=== PATIENT | male | born 1990 | race Caucasian/White ===

== ENCOUNTER → 2017-10-03 | Outpatient (REF) | payer OTHER ==
[2017-10-03 10:44] LABS: PLATELET COUNT, AUTOMATED 330 K/uL (150-450)
== END ==
PROVIDERS: ATTEND Nurse Practitioner Family
DX: R11.10 Vomiting, unspecified (principal); R19.7 Diarrhea, unspecified
CPT/HCPCS: 82040; 82247; 82310; 82374; 82435; 82565; 82947; 84075; 84132; 84155; 84295; 84450; 84460; 84520; 85025

== ENCOUNTER → 2017-11-08 | Outpatient (CLI) | payer OTHER ==
--- NOTE | 2017-11-08 12:02 | RADIOLOGY IMAGING REPORT ---
[place] [facility] [place] Satya Eng : 1990 MR: [id number] V: [id number] EXAM DATE: ORDERING PHYSICIAN: HERMILO LR TECHNOLOGIST: Location: [facility] Patient: Satya Eng : 1990 Visit/Account:[id number] Date of Sevice: 11/08/2017 EXAMINATION: Abdominal ultrasound complete HISTORY: Abdominal pain. COMPARISON: None. FINDINGS: Gallbladder: No stones, wall thickening, pericholecystic fluid or sonographic Corral sign. Liver: The liver appears diffusely heterogeneous with increased echogenicity throughout which can be seen with fatty infiltration or other process Common duct: Normal measuring 4.2 mm. Pancreas: Negative. Spleen: Normal in size and echogenicity measuring 13 cm in length. Kidneys: Normal in size and echogenicity, the right measures 11 cm in length, and the left 11.4 cm. No hydronephrosis. Upper abdominal aorta and IVC: Negative. Ascites: None. IMPRESSION: Liver appears diffusely heterogeneous with increased echogenicity throughout which can be seen with f atty infiltration or other infiltrative process Report Dictated By: Jody Oh MD at 11/08/2017 11:54 AM Report E-Signed By: Jody Oh MD at 11/08/2017 11:58 AM WSN:[id number]
== END ==
LOC: US 01:15
PROVIDERS: ATTEND Nurse Practitioner Family
DX: K76.0 Fatty (change of) liver, not elsewhere classified (principal)
CPT/HCPCS: 76700